=== PATIENT | male | born 1990 | race Hispanic/Latino ===

== ENCOUNTER 2023-02-07 11:46 | Emergency (ER) | payer SELFPAY ==
[~2023-02-07] VITALS: Ht 152.4 cm; Wt 63.5 kg
[2023-02-07 12:02] VITALS: BP 151/99; PULSE 65; RESP 18; TEMP 98.8; O2SAT 99
--- NOTE | 2023-02-07 12:02 | NUR ---
ARRIVAL PT ARRIVED AMBULATORY TO ER C/O LACERATION TO RIGHT HAND WHEN WORKING WITH A METAL PIECE. V/S OBTAINED. PHYSICIAN NOTIFIED.
[2023-02-07] MEDS ORDERED: BOOSTRIX IM ONE ×2 (13:00→13:01)
--- NOTE | 2023-02-07 13:05 | ER.PDOC ---
General Chief Complaint: Extremities Stated Complaint: LACERATION ON HAND Time seen by MD: 12:59 Source: patient Exam Limitations: no limitations History of Present Illness Initial Comments Right hand laceration from metal at work this afternoon. Occurred: just prior to arrival Where: work Severity: moderate Context: laceration Location of Injury: (R) hand Allergies: Coded Allergies: No Known Allergies (Unverified , 02/07/23) Past Medical History Medical History: no pertinent history Surgical History: no surgical history Family History Significant Family History: no pertinent family hx Social History Smoking: non-smoker Alcohol Use: occassionally Drug Use: none Review of Systems Constitutional: no symptoms reported EENTM: no symptoms reported Respiratory: no symptoms reported Cardiovascular: no symptoms reported Gastrointestinal: no symptoms reported All Other Systems: Reviewed and Negative Physical Exam General Appearance: Alert, No Apparent Distress Hand: tenderness Wrist: nml inspection, non-tender, nml ROM 1 - Lac Neuro: sensation nml, motor nml Vascular: no vascular compromise Tendons: tendon function nml Forearm/Elbow/Arm: uninjured above wrist Head/ENT: nml inspection, pharynx nml Neck/Back: nml inspection, non-tender Resp/CVS: no resp distress, lungs clear, heart sounds nml, reg. rate & rhythm Abdomen: non-tender, no organomegaly ED LACERATION WOUND REPAIR # of Wounds/Lacerations Presen: 1 Wound Location & Length (Requi: Right hand Wound Length (cm): 4 Wound cleaned: betadine Anesthesia: 1% Lidocaine Volume Anesthetic (ccs): 10 Wound's Depth, Shape: linear Irrigated w/ Saline (ccs): 30 Wound Repaired With: sutures Suture Size/Type: 4:0, ethilon Suture Style: interupted Number of Sutures: 6 Sterile Dressing Applied?: Yes Results/Orders Results/Orders Vital Signs Date Time Temp Pulse Resp B/P (MAP) Pulse Ox O2 Delivery O2 Flow Rate FiO2 02/07/23 12:02 98.8 65 18 151/99 (116) 99 Room Air* 0 21 02/07/23 12:02 98.8 65 18 02/07/23 12:02 98.8 65 18 151/99 (116) 99 Room Air* 0 02/07/23 12:02 98.8 65 18 99 Progress Progress Patient received Boostrix. ER DEPART Departure Time of Disposition: 13:11 Disposition: 01 HOME / SELF CARE / HOMELESS Impression: Primary Impression: Laceration of hand Condition: Improved Referrals: PCP,UNKNOWN (PCP) PRIMARY CARE PROVIDER Additional Instructions: Keflex Tylenol Apply Neosporin daily Remove sutures in 8 days either PCP or ED Return to ED sooner if new concerns Duration or Time Spent with Pa: 10 min Problem Qualifiers Primary Impression: Laceration of hand Encounter type: initial encounter Foreign body presence: without foreign body Laterality: right Qualified Codes: S61.411A - Laceration without foreign body of right hand, initial encounter CHARLI ARIZA MD Feb 07, 2023 13:05
[2023-02-07 13:16] VITALS: BP 151/99; PULSE 62; RESP 18; TEMP 98.8; O2SAT 99
== END 2023-02-07 13:16 | disposition home or self-care (01) ==
LOC: ER 11:46
DX: S61.411A Laceration without foreign body of right hand, initial encounter (principal); X58.XXXA Exposure to other specified factors, initial encounter; Y93.89 Activity, other specified; Y92.89 Other specified places as the place of occurrence of the external cause; Y99.8 Other external cause status
CPT/HCPCS: 12002; 90471; 90715; 99283